=== PATIENT | male | born 1975 | race Caucasian/White ===

== ENCOUNTER 2020-03-12 07:23 | Outpatient (CLI) | payer OTHER | END 2020-03-12 07:36 | disposition home or self-care (01) | LOC: RAD 07:23 | PROVIDERS: ATTEND Specialist | DX: I48.91 Unspecified atrial fibrillation (principal) ==

== ENCOUNTER 2020-09-01 13:36 | Emergency (ER) | payer OTHER ==
[~2020-09-01] VITALS: Ht 177.8 cm; Wt 86.2 kg
[2020-09-01] MEDS ORDERED: FLECAINIDE ACE100 MG PO (13:54)
[2020-09-01] MEDS ORDERED: METOPROLOL SUCC50 MG PO (13:55)
== END 2020-09-01 16:50 | disposition home or self-care (01) ==
LOC: ER 13:36
DX: R42 Dizziness and giddiness (principal); I48.91 Unspecified atrial fibrillation